=== PATIENT | female | born 1960 | race Hispanic/Latino ===

== ENCOUNTER 2017-05-11 08:30 | Observation (INO) | payer BC ==
[2017-05-11] MEDS ORDERED: Albuterol-Ipratrop 3 mg / 0.5 (3 ml) UD IH STA (09:00)
[2017-05-11] MEDS ORDERED: Albuterol 0.083% Inhal Sol (2.5 mg/3 mL) UD INH STA (09:00)
--- NOTE | 2017-05-11 09:24 | ED PDOC ---
Arrival/HPI - General Chief Complaint: Shortness Of Breath Time Seen by Provider: 05/11/17 08:54 Historian: Patient - History of Present Illness Narrative History of Present Illness (Text): 05/11/17 09:27 A 57 year old male presents to the emergency department complaining of shortness of breath for the past three weeks. Patient reports to visiting multiple doctors with no relief. Patient was told she has some lung infection after visiting [facility] on 04/25/17. After she was discharged, she visited [facility] and was told she had a negative chest xray. Patient sees a growth hacker and is on steroids, with no relief. Denies taking any pulmonary function test. Reports mother has history of lung CA. Reports she used to live with someone who has flu and Pneumonia. Patient denies smoking currently, quit a long time ago. Patient reports chest pain with deep breaths. Notes thrush at throat and appetite changes. Denies any other complaints at this time. Steroids: Prednisone, Levaquin (750 mg once a day) Time/Duration: < month Symptom Onset: Sudden Symptom Course: Unchanged Activities at Onset: Rest Context: Home Past Medical History - Provider Review Nursing Documentation Reviewed: Yes - Infectious Disease Hx of Infectious Diseases: None - Neurological Other/Comment: Fibromyalgia - Psychiatric Hx Anxiety: Yes Hx Substance Use: No - Surgical History Hx Tubal Ligation: Yes Family/Social History - Physician Review Nursing Documentation Reviewed: Yes Family/Social History: No Known Family HX Smoking Status: Never Smoked Hx Alcohol Use: No Hx Substance Use: No Allergies/Home Meds Allergies/Adverse Reactions: Allergies epinephrine Allergy (Verified 05/11/17 08:47) ANAPHYLAXIS Pt states she gets to jumpy with this medication. Home Medications: Home Meds Medication Instructions Recorded Confirmed predniSONE [Prednisone] 20 mg PO DAILY 05/11/17 05/11/17 Review of Systems - Physician Review All systems were reviewed & negative as marked: Yes - Review of Systems ENT: Other (thrush at throat) Respiratory: SOB Cardiovascular: Chest Pain (with deep breaths) Gastrointestinal: Appetite Changes Physical Exam Vital Signs Reviewed: Yes Vital Signs Temp Pulse Resp BP Pulse Ox 05/11/17 08:42 98.7 F 87 18 115/80 97 05/11/17 08:40 20 Temperature: Afebrile Blood Pressure: Normal Pulse: Regular Respiratory Rate: Normal Appearance: Positive for: Well-Appearing, Non-Toxic, Comfortable Pain Distress: None Mental Status: Positive for: Alert and Oriented X 3 - Systems Exam Head: Present: Atraumatic, Normocephalic Pupils: Present: PERRL Extroacular Muscles: Present: EOMI Conjunctiva: Present: Normal Mouth: Present: Moist Mucous Membranes Pharnyx: Present: Other (thrush on tongue and down posterior pharynx) Neck: Present: Normal Range of Motion Respiratory/Chest: Present: Wheezes (expiratory, posteriorly) Cardiovascular: Present: Regular Rate and Rhythm, Normal S1, S2. No: Murmurs Abdomen: Present: Normal Bowel Sounds. No: Tenderness, Distention, Peritoneal Signs Back: Present: Normal Inspection Upper Extremity: Present: Normal Inspection. No: Cyanosis, Edema Lower Extremity: Present: Normal Inspection. No: Edema Neurological: Present: GCS=15, CN II-XII Intact, Speech Normal Skin: Present: Warm, Dry, Normal Color. No: Rashes Psychiatric: Present: Alert, Oriented x 3, Normal Insight, Normal Concentration Medical Decision Making ED Course and Treatment: 05/11/17 09:20 Impression: A 57 year old female with shortness of breath. Plan: -- EKG -- chest xray -- labs -- Albuterol, Diflucan, Duoneb, Solumedrol -- Reassess and disposition Progress Notes: EKG: Ordered, reviewed, and independently interpreted the EKG. Rate : 83 BPM Rhythm : NSR Interpretation : Normal intervals, normal axis 05/11/17 11:12 Chest xray- Creator : Severino Pearce MD IMPRESSION: No active disease. 05/11/17 11:[address] Cherry, who agrees and accepts patient to be admitted. Patient was admitted for acute bronchospasm with bronchitis. - Lab Interpretations Lab Results: 05/11/17 09:10 05/11/17 09:10 Lab Results 05/11/17 09:45: pCO2 42, pO2 178.0 H, HCO3 28.5 H, ABG pH 7.44, ABG Total CO2 29.8 H, ABG O2 Saturation 99.4 H, ABG Base Excess 3.9 H, ABG Potassium 3.0 L, Glucose 178 H, Lactate 1.4, FiO2 60.0, Sodium 137.0, Chloride 104.0, Arterial Blood Potassium 3.0 L 05/11/17 09:10: Sodium 139, Potassium 3.5 L, Chloride 99, Carbon Dioxide 28, Anion Gap 16, BUN 13, Creatinine 0.8, Est GFR ( Amer) > 60, Est GFR (Non- Af Amer) > 60, Random Glucose 188 H, Calcium 10.0, Total Bilirubin 0.7, AST 18, ALT 23, Alkaline Phosphatase 63, Total Protein 6.9, Albumin 4.3, Globulin 2.6, Albumin/Globulin Ratio 1.7 05/11/17 09:10: PT 12.3, INR 1.07, D-Dimer, Quantitative < 200 05/11/17 09:10: WBC 11.2 H, RBC 4.71, Hgb 14.0, Hct 41.8, MCV 88.7, MCH 29.7, MCHC 33.5, RDW 12.4, Plt Count 242, MPV 9.4, Gran % 57.6, Lymph % (Auto) 37.3 H , Noble % (Auto) 4.7, Eos % (Auto) 0.2 L, Baso % (Auto) 0.2, Gran # 6.43, Lymph # (Auto) 4.2 H, Noble # (Auto) 0.5, Eos # (Auto) 0.0, Baso # (Auto) 0.02 I have reviewed the lab results: Yes - EKG Interpretation Interpreted by ED Physician: Yes Type: 12 lead EKG - Medication Orders Current Medication Orders: Discontinued Medications Albuterol Sulfate (Albuterol 0.083% Inhal Shanae (2.5 Mg/3 Ml) Ud) 5 mg INH STAT STA Stop: 05/11/17 09:01 Last Admin: 05/11/17 09:19 Dose: 5 mg Albuterol/Ipratropium (Duoneb 3 Mg/0.5 Mg (3 Ml) Ud) 3 ml IH STAT STA Stop: 05/11/17 09:01 Last Admin: 05/11/17 09:03 Dose: 3 ml Clotrimazole (Mycelex Chet) 10 mg MT ONCE ONE Stop: 05/11/17 10:24 Fluconazole (Diflucan) 150 mg PO ONCE ONE PRN Reason: Protocol Stop: 05/11/17 09:02 Last Admin: 05/11/17 09:20 Dose: 150 mg Methylprednisolone (Solu-Medrol) 125 mg IVP STAT STA Stop: 05/11/17 09:01 Last Admin: 05/11/17 09:18 Dose: 125 mg IVP Administration Document 05/11/17 09:18 CHARLEE (Rec: 05/11/17 09:18 CHARLEE [id number]) Charges for Administration # of IVP Administrations 1 - PA / [employer] / Resident Statement MD/DO has reviewed & agrees with the documentation as recorded. - Scribe Statement The provider has reviewed the documentation as recorded by the Brandi Aldridge Provider Scribe Attestation: All medical record entries made by the Brandi were at my direction and personally dictated by me. I have reviewed the chart and agree that the record accurately reflects my personal performance of the history, physical exam, medical decision making, and the department course for this patient. I have also personally directed, reviewed, and agree with the discharge instructions and disposition. Disposition/Present on Arrival - Present on Arrival Any Indicators Present on Arrival: No History of DVT/PE: No History of Uncontrolled Diabetes: No Urinary Catheter: No History of Decub. Ulcer: No History Surgical Site Infection Following: None - Disposition Have Diagnosis and Disposition been Completed?: Yes Diagnosis: Bronchospasm with bronchitis, acute Disposition Time: 10:33 Patient Plan: Admission Patient Problems: Current Active Problems Problem Status Onset Bronchospasm with bronchitis, acute Acute Condition: GOOD
[2017-05-11 09:42] LABS: BASO # 0.02 K/mm3 (0.0-2.0); BASO % 0.2 % (0.0-3.0); EOS % 0.2 % (1.5-5.0); GRAN # 6.43 (1.4-6.5); GRAN % 57.6 % (50.0-68.0); LYMPH # 4.2 (1.2-3.4); LYMPH % 37.3 % (22.0-35.0); MEAN CELL VOLUME 88.7 fl (80.0-105.0); MEAN CORPUSCULAR HEMOGLOBIN 29.7 pg (25.0-35.0); MEAN CORPUSCULAR HGB CONC 33.5 g/dl (31.0-37.0); MEAN PLATELET VOLUME 9.4 fl (7.0-11.0); MONO # 0.5 (0.1-0.6); MONO % 4.7 % (1.0-6.0); RBC 4.71 10^6/uL (3.5-6.1); RED CELL DISTRIBUTION WIDTH 12.4 % (11.5-14.5); WHITE BLOOD COUNT 11.2 10^3/ul (4.5-11.0)
[2017-05-11 09:50] LABS: ARTERIAL BLOOD GAS HCO3 28.5 mmol/L (21-28); ARTERIAL BLOOD GAS O2 SAT 99.4 % (95-98); ARTERIAL BLOOD GAS PCO2 42 mm/Hg (35-45); ARTERIAL BLOOD GAS PH 7.44 (7.35-7.45); ARTERIAL BLOOD GAS TCO2 29.8 mmol.L (22-28)
[2017-05-11 09:53] LABS: ALB/GLOB RATIO 1.7 (1.1-1.8); ALBUMIN 4.3 g/dL (3.0-4.8); ALT/SGPT 23 U/L (7-56); AST/SGOT 18 U/L (14-36); BLOOD UREA NITROGEN 13 mg/dL (7-21); GFR AFRICAN-AMERICAN > 60; GFR NON-AFRICAN AMERICAN > 60
[2017-05-11 09:55] LABS: INR 1.07 (0.93-1.08); PROTHROMBIN TIME 12.3 SECONDS (9.4-12.5)
[2017-05-11 09:56] LABS: D DIMER < 200 ng/mL (0-243)
--- NOTE | 2017-05-11 11:11 | RAD ---
HISTORY: BRONCHOSPASM COMPARISON: No prior. FINDINGS: LUNGS: No active pulmonary disease. PLEURA: No significant pleural effusion identified, no pneumothorax apparent. CARDIOVASCULAR: Normal. OSSEOUS STRUCTURES: No significant abnormalities. VISUALIZED UPPER ABDOMEN: Normal. OTHER FINDINGS: None. IMPRESSION: No active disease.
[2017-05-11] MEDS: Albuterol-Ipratrop 3 mg / 0.5 (3 ml) UD IH PRN (16:26)
[2017-05-11 18:01] VITALS: BMI 25.9
[2017-05-11] MEDS ORDERED: Pneumococcal 23-Valent Vaccine IM ONE (18:01)
[2017-05-11] MEDS ORDERED: Influenza Vaccine 60 mcg/0.5 mL SYR (4YR UP) IM ONE (18:01)
[2017-05-11] MEDS: Sucralfate 1 gm/10 ml Oral Susp UD PO SCH ×2 (18:38→22:30)
[2017-05-11] MEDS: Nystatin 100,000 Units/ml Oral Susp 5 ml UD PO SCH ×2 (18:38→22:30)
[2017-05-11] MEDS: Pantoprazole 40 mg EC Tab PO SCH (18:38)
--- NOTE | 2017-05-11 21:50 | CARD ---
APPROVED REPORT EKG Measurement Heart [id number] <Conclusion> Normal sinus rhythm Normal ECG
--- NOTE | 2017-05-12 02:42 | PN ---
DATE: 05/11/2017 PULMONARY PROGRESS NOTE REFERRING PHYSICIAN: Dr. Cherry. REASON FOR CONSULT: Cough and shortness of breath. HISTORY OF PRESENT ILLNESS: This is a 57-year-old female with diagnosis of fibromyalgia, recently seen at multiple occasions including [facility] ER, seen by PMD, also seen by [facility] in [facility], also seen by Dr. Carlson who is a energy audit advisor. She has been on antibiotics, been on steroids, keep complaining of a burning throat, difficulty breathing, muscular pain, shortness of breath. During my interview, seems very comfortable. There was no cough, did not notice any shortness of breath, there is no hemoptysis, she is denying any significant cough, denying any body aches or pain, denying any high fever. According to patient, she noted thrush in the throat. SUBJECTIVE: According to her, she was given Diflucan and she felt better. Denying any loud snoring at nighttime. According to , she wheeze while sleeping at nighttime. PAST MEDICAL HISTORY: She carry diagnosis of fibromyalgia. There is no cardiopulmonary disease in the past. ALLERGIES: SHE HAS ALLERGY TO EPINEPHRINE, GET ANAPHYLAXIS. SOCIAL HISTORY: Never smoked. Denying any alcohol use. FAMILY HISTORY: No significant cardiopulmonary disease reported. MEDICATIONS: She just finished off Levaquin and methylprednisolone. She gets nebulizer treatment, Mycelex Chet and Solu-Medrol 125 IV was given. REVIEW OF SYSTEMS: No headache, no rhinitis. Has shortness of breath, some cough, not much sputum production, has muscular type chest pain, epigastric discomfort. In the past, she used Protonix and still use Protonix on a daily basis. No leg pain, no leg swelling, no dysuria. PHYSICAL EXAMINATION: GENERAL: Lying in the bed, no acute distress. VITAL SIGNS: Temp is 98, heart rate is 90, respiratory rate is 20, blood pressure 104/62, pulse ox 97% on room air. HEENT: Moist mucous membrane. No ulcer or thrush. NECK: Supple. No JVD. LUNGS: Has a fair airflow with rhonchi. HEART: S1, S2. ABDOMEN: Soft, nontender. No organomegaly. She does have some epigastric tenderness on palpation. EXTREMITIES: There is no edema. NEUROLOGICAL: Awake and alert. Follow simple commands. LABORATORY DATA: Shows hemoglobin 14.0, hematocrit 41.8, WBC 11.2, platelet is 242. INR 1.07, PT is 12.3, D-dimer is less than 200. Blood gases show pH 7.44, pCO2 of 42, O2 is 178, this is on 60% oxygen. Sodium 139, potassium 3.5, chloride 99, bicarbonate 28, BUN 13, creatinine 0.8, glucose 188, calcium 10.0, AST , ALT 23, alk phos is 63, albumin is 4.3. Influenza A and B is negative. She had a chest x-ray done today, which shows no infiltrate or effusion. There is no other visit reported in her record here. IMPRESSION AND PLAN: Reoccurring shortness of breath. She claims her CT of the chest been negative for pulmonary embolism other than a lung nodule. She has been treated with the steroids and antibiotics as an outpatient, which failed the treatment. If her story is right and what she telling me that CT negative, failed prednisone and Levaquin as outpatient. She probably has a gastroesophageal reflux disease causing her esophagitis, pharyngeal pain and probably triggering bronchospasm. So I will place her on Protonix 40 mg twice a day, also give a Carafate slurry a.c. and at bedtime. We will give her Lyrica 25 mg twice a day. Keep head elevated at 45 degree, may give a nebulizer treatment only p.r.n. basis. She will start her on Reglan 5 mg q.i.d. just for 24-hour and see how she does. If symptom does not improve, we will lead to do CAT scan of the chest and may also lead to look into the echocardiography. Outpatient, she should get pulmonary function test. Spoke to patient at the bedside. All the questions answered. Thank you and we will follow with you. Jomar Zamora MD
[2017-05-12] MEDS: Pantoprazole 40 mg EC Tab PO SCH ×3 (06:17→17:49)
[2017-05-12] MEDS: Albuterol-Ipratrop 3 mg / 0.5 (3 ml) UD IH PRN ×3 (06:36→20:52)
[2017-05-12 08:15] VITALS: O2SAT 97
[2017-05-12 09:03] LABS: BASO # 0.01 K/mm3 (0.0-2.0); BASO % 0.1 % (0.0-3.0); EOS % 0.1 % (1.5-5.0); GRAN # 11.5 (1.4-6.5); GRAN % 71.2 % (50.0-68.0); HEMOGLOBIN 13.5 g/dL (12.0-16.0); LYMPH # 3.7 (1.2-3.4); LYMPH % 22.8 % (22.0-35.0); MEAN CELL VOLUME 89.3 fl (80.0-105.0); MEAN CORPUSCULAR HEMOGLOBIN 29.5 pg (25.0-35.0); MEAN CORPUSCULAR HGB CONC 33.1 g/dl (31.0-37.0); MEAN PLATELET VOLUME 9.3 fl (7.0-11.0); MONO # 0.9 (0.1-0.6); MONO % 5.8 % (1.0-6.0); RBC 4.57 10^6/uL (3.5-6.1); RED CELL DISTRIBUTION WIDTH 12.6 % (11.5-14.5); WHITE BLOOD COUNT 16.1 10^3/ul (4.5-11.0)
[2017-05-12 09:18] LABS: ALB/GLOB RATIO 1.6 (1.1-1.8); ALBUMIN 4.1 g/dL (3.0-4.8); ALT/SGPT 23 U/L (7-56); AST/SGOT 17 U/L (14-36); BLOOD UREA NITROGEN 16 mg/dL (7-21); GFR AFRICAN-AMERICAN > 60; GFR NON-AFRICAN AMERICAN > 60; HDL CHOLESTEROL 55 mg/dL (29-60)
[2017-05-12 09:24] LABS: LDL CHOLESTEROL 119 mg/dL (0-129)
[2017-05-12] MEDS: Nystatin 100,000 Units/ml Oral Susp 5 ml UD PO SCH ×4 (10:03→21:35)
[2017-05-12 10:17] LABS: IRON 125 ug/dL (45-180)
[2017-05-12 10:27] LABS: % IRON SATURATION 45 % (20-55); TOTAL IRON BINDING CAPACITY 279 ug/dL (265-497)
[2017-05-12] MEDS: Sucralfate 1 gm/10 ml Oral Susp UD PO SCH ×3 (12:09→21:35)
--- NOTE | 2017-05-12 14:53 | CT ---
PROCEDURE: CT Abdomen with and without intravenous contrast HISTORY: w/ abdomen and pelvis: abdomianl pain COMPARISON: None. TECHNIQUE: Axial images of the abdomen from lung bases to iliac crest with and without intravenous contrast enhancement. Coronal and sagittal reformats generated. Oral contrast also administered. Intravenous contrast Dose: 150 cc of Omni 350 Radiation dose: Total exam DLP = 759 mGy-cm. This CT exam was performed using one or more of the following dose reduction techniques: Automated exposure control, adjustment of the mA and/or kV according to patient size, and/or use of iterative reconstruction technique. FINDINGS: LOWER THORAX: Unremarkable. LIVER: Unremarkable. No gross lesion or ductal dilatation. GALLBLADDER AND BILE DUCTS: The gallbladder is unremarkable. The common duct measures 10 mm in diameter. There is no obstructing stone or pancreatic mass. PANCREAS: Unremarkable. No gross lesion or ductal dilatation. SPLEEN: Unremarkable. ADRENALS: Unremarkable. No mass. KIDNEYS AND URETERS: Unremarkable. No hydronephrosis. No solid mass. VASCULATURE: Unremarkable. No aortic aneurysm. BOWEL: Unremarkable. No obstruction. No gross mural thickening. PERITONEUM: Unremarkable. No free fluid. No free air. LYMPH NODES: Unremarkable. No enlarged lymph nodes. BONES: No acute fracture. OTHER FINDINGS: None. IMPRESSION: Dilated common bile duct with no obvious stone or mass.
--- NOTE | 2017-05-12 16:26 | CP.PCM.CON ---
<Una Jimenez - Last Filed: 05/12/17 18:30> History of Present Illness - History of Present Illness History of Present Illness: S&E at bedside, chart reviewed earlier today. Request for consult is for dyspepesia. HPI: 57 y.o female w/ PMH fibromyalgia been to multiple doctors and ER visits at [facility] [place], and [facility] in [place] for complaints of SOB and cough. Endorses that she was given multiple diagnosis, One she mentioned was she may have "Anxiety". Also has seen credit historian Dr. Carlson placed on antibiotics and steroids. Patient c/o epigastric burning especially since starting steroids, also c/o pain radiated to her back, She reports over 10 lbs weight loss over 1 week , poor appetite, when she eats/drinks get burning sensation, she has oral thrush was given Difulcan and felt some relief. She had EGD/colon with Dr. Taylor August 2016, found colon polyps and hiatal hernia. CXR no acute findings. PMH: Fibromyalgia, colon polyps, haital hernia, denies cardiac issues PSH: none Family HX: monther Lung cancer MEDS: reviewed as per MAY. Allergies: Epinephrine Social HX: denies tobacco , etoh, drugs ROS: systems reviewed w/ positive findings, see HPI Past Patient History - Infectious Disease Hx of Infectious Diseases: None - Past Social History Smoking Status: Never Smoked - CARDIAC Hx Cardiac Disorders: No - PULMONARY Hx Respiratory Disorders: Yes (THRUSH-DUE TO STEROID USE) Hx Emphysema: Yes Other/Comment: LUNG NODULE - NEUROLOGICAL Hx Neurological Disorder: Yes Other/Comment: Fibromyalgia - HEENT Hx HEENT Problems: No - RENAL Hx Chronic Kidney Disease: No - ENDOCRINE/METABOLIC Hx Endocrine Disorders: No - HEMATOLOGICAL/ONCOLOGICAL Hx Blood Disorders: No - INTEGUMENTARY Hx Dermatological Problems: No - MUSCULOSKELETAL/RHEUMATOLOGICAL Hx Musculoskeletal Disorders: No Hx Falls: No - GASTROINTESTINAL Hx Gastrointestinal Disorders: Yes (HIATAL HERNIA) Hx Gastroesophageal Reflux: Yes - GENITOURINARY/GYNECOLOGICAL Hx Genitourinary Disorders: Yes (TUBAL LIGATION) - PSYCHIATRIC Hx Anxiety: Yes Hx Substance Use: No - SURGICAL HISTORY Hx Surgeries: Yes (TUBAL LIGATION) Meds Allergies/Adverse Reactions: Allergies Allergy/AdvReac Type Severity Reaction Status Date / Time epinephrine Allergy ANAPHYLAXIS Verified 05/11/17 17:37 - Medications Medications: Current Medications Acetylcysteine (Acetylcysteine 20%) 4 ml IH [id number] [facility] Albuterol/Ipratropium (Duoneb 3 Mg/0.5 Mg (3 Ml) Ud) 3 ml IH [id number] PRN PRN Reason: Shortness of Breath Last Admin: 05/12/17 12:21 Dose: 3 ml Metoclopramide HCl (Reglan) 5 mg PO 0600,1130,1630,2200 [facility] Stop: 05/12/17 23:59 Last Admin: 05/12/17 12:09 Dose: 5 mg Nystatin (Nystatin Oral Susp) 5 ml PO QID [facility] Last Admin: 05/12/17 14:53 Dose: 5 ml Pantoprazole Sodium (Protonix Ec Tab) 40 mg PO 0600,1600 [facility] Last Admin: 05/12/17 06:17 Dose: 40 mg Pregabalin (Lyrica) 25 mg PO BID [facility] Last Admin: 05/12/17 10:18 Dose: Not Given Sucralfate (Carafate Oral Susp) 1 gm PO 0630,1130,1630,2200 [facility] Last Admin: 05/12/17 12:09 Dose: 1 gm Physical Exam - Constitutional Appears: No Acute Distress - Head Exam Head Exam: NORMOCEPHALIC - Eye Exam Eye Exam: Normal appearance. absent: Scleral icterus - ENT Exam ENT Exam: Mucous Membranes Moist - Neck Exam Neck exam: Positive for: Normal Inspection - Respiratory Exam Respiratory Exam: Rhonchi, NORMAL BREATHING PATTERN. absent: Wheezes, Respiratory Distress - Cardiovascular Exam Cardiovascular Exam: +S1, +S2 - GI/Abdominal Exam GI & Abdominal Exam: Normal Bowel Sounds, Soft. absent: Guarding, Organomegaly , Rebound, Tenderness - Extremities Exam Extremities exam: Positive for: pedal pulses present. Negative for: calf tenderness, pedal edema - Neurological Exam Neurological exam: Alert, Oriented x3 - Skin Skin Exam: Dry, Warm Results - Vital Signs Recent Vital Signs: Last Vital Signs Temp 97.9 F 05/12/17 08:14 Pulse 54 L 05/12/17 08:14 Resp 20 05/12/17 08:14 BP 105/69 05/12/17 08:14 Pulse Ox 97 05/12/17 08:14 - Labs Result Diagrams: 05/12/17 08:45 05/12/17 08:45 Labs: Laboratory Results - last 24 hr 05/12/17 05/12/17 05/12/17 08:30 08:45 08:45 WBC 16.1 H D RBC 4.57 Hgb 13.5 Hct 40.8 MCV 89.3 MCH 29.5 MCHC 33.1 RDW 12.6 Plt Count 242 MPV 9.3 Gran % 71.2 H Lymph % (Auto) 22.8 Davie % (Auto) 5.8 Eos % (Auto) 0.1 L Baso % (Auto) 0.1 Gran # 11.50 H Lymph # (Auto) 3.7 H Davie # (Auto) 0.9 H Eos # (Auto) 0.0 Baso # (Auto) 0.01 Sodium 139 Potassium 3.9 Chloride 98 Carbon Dioxide 31 Anion Gap 14 BUN 16 Creatinine 0.8 Est GFR ( Amer) > 60 Est GFR (Non-Af Amer) > 60 Random Glucose 114 H Calcium 10.0 Iron 125 TIBC 279 % Saturation 45 Total Bilirubin 0.7 AST 17 ALT 23 Alkaline Phosphatase 63 Total Protein 6.8 Albumin 4.1 Globulin 2.7 Albumin/Globulin Ratio 1.6 Triglycerides 123 Cholesterol 208 H LDL Cholesterol Direct 119 HDL Cholesterol 55 Assessment & Plan - Assessment and Plan (Free Text) Assessment: ASSESSMENT: Leukocystosis SOB/Cough/ Upper Respiratory Infection Epigastric Pain, differential GERD,on steroids r/o pancreatic cause GERD Fibromyalgia PLAN: ct scan abdomen and pelvis w/ pancreatic protocol continue Protonix daily diet as tolerated on Carafate on steroids DVT prophylaxsis on Nystatin FU TSH level Thank you for this consult and for allowing us to participate in your patient care, further recommendation based upon clinical course. Seen and discussed w/ Dr. Aly. <Blanquita Aly V - Last Filed: 05/12/17 23:36> Meds - Medications Medications: Current Medications Acetylcysteine (Acetylcysteine 20%) 4 ml IH [id number] [facility] Last Admin: 05/12/17 20:52 Dose: 4 ml Albuterol/Ipratropium (Duoneb 3 Mg/0.5 Mg (3 Ml) Ud) 3 ml IH [id number] [facility] Atorvastatin Calcium (Lipitor) 10 mg PO DIN [facility] Metoclopramide HCl (Reglan) 5 mg PO 0600,1130,1630,2200 [facility] Stop: 05/12/17 23:59 Last Admin: 05/12/17 21:35 Dose: 5 mg Montelukast Sodium (Singulair) 10 mg PO HS [facility] Last Admin: 05/12/17 22:40 Dose: 10 mg Nystatin (Nystatin Oral Susp) 5 ml PO QID [facility] Last Admin: 05/12/17 21:35 Dose: 5 ml Pantoprazole Sodium (Protonix Ec Tab) 40 mg PO 0600,1600 [facility] Last Admin: 05/12/17 17:49 Dose: Not Given Prednisone (Prednisone Tab) 20 mg PO DAILY [facility] Pregabalin (Lyrica) 25 mg PO BID [facility] Last Admin: 05/12/17 17:49 Dose: Not Given Sucralfate (Carafate Oral Susp) 1 gm PO 0630,1130,1630,2200 [facility] Last Admin: 05/12/17 21:35 Dose: 1 gm Results - Vital Signs Recent Vital Signs: Last Vital Signs Temp 99.3 F 05/12/17 16:00 Pulse 76 05/12/17 16:00 Resp 20 05/12/17 16:00 BP 117/66 05/12/17 16:00 Pulse Ox 97 05/12/17 16:00 - Labs Result Diagrams: 05/12/17 08:45 05/12/17 08:45 Labs: Laboratory Results - last 24 hr 05/12/17 05/12/17 05/12/17 08:30 08:30 08:45 WBC 16.1 H D RBC 4.57 Hgb 13.5 Hct 40.8 MCV 89.3 MCH 29.5 MCHC 33.1 RDW 12.6 Plt Count 242 MPV 9.3 Gran % 71.2 H Lymph % (Auto) 22.8 Davie % (Auto) 5.8 Eos % (Auto) 0.1 L Baso % (Auto) 0.1 Gran # 11.50 H Lymph # (Auto) 3.7 H Davie # (Auto) 0.9 H Eos # (Auto) 0.0 Baso # (Auto) 0.01 Sodium Potassium Chloride Carbon Dioxide Anion Gap BUN Creatinine Est GFR ( Amer) Est GFR (Non-Af Amer) Random Glucose Hemoglobin A1c 6.2 Calcium Iron 125 TIBC 279 % Saturation 45 Total Bilirubin AST ALT Alkaline Phosphatase Total Protein Albumin Globulin Albumin/Globulin Ratio Triglycerides Cholesterol LDL Cholesterol Direct HDL Cholesterol Vitamin B12 Folate 02/22/18 08:45 WBC RBC Hgb Hct MCV MCH MCHC RDW Plt Count MPV Gran % Lymph % (Auto) Davie % (Auto) Eos % (Auto) Baso % (Auto) Gran # Lymph # (Auto) Davie # (Auto) Eos # (Auto) Baso # (Auto) Sodium 139 Potassium 3.9 Chloride 98 Carbon Dioxide 31 Anion Gap 14 BUN 16 Creatinine 0.8 Est GFR ( Amer) > 60 Est GFR (Non-Af Amer) > 60 Random Glucose 114 H Hemoglobin A1c Calcium 10.0 Iron TIBC % Saturation Total Bilirubin 0.7 AST 17 ALT 23 Alkaline Phosphatase 63 Total Protein 6.8 Albumin 4.1 Globulin 2.7 Albumin/Globulin Ratio 1.6 Triglycerides 123 Cholesterol 208 H LDL Cholesterol Direct 119 HDL Cholesterol 55 Vitamin B12 610 Folate 10.6 Attending/Attestation - Attestation Notes (Text): This is an addendum to GI consult report dictated by Una Jimenez APN.The patient was seen and examined earlier. Medical records, lab studies, imagings were reviewed. Last 24 hours events reviewed. Agreed with the above treatment plan as outlined in Una Jimenez APN's notes the with the addition of the following will 05/12/17 23:35
[2017-05-12 17:47] LABS: FOLATE 10.6 ng/mL
--- NOTE | 2017-05-12 20:00 | HP ---
DATE OF EXAM: 05/11/2017 The patient was seen and examined on 05/11/2017 in the emergency room. was sitting on the bedside also. CHIEF COMPLAINT: Shortness of breath, coughing, chest pain with coughing. HISTORY OF PRESENT ILLNESS: Ms. Nora Campbell is a 57-year-old female with past medical history of COPD, came to the Emergency Department complaining of shortness of breath for past three weeks. Patient reports visiting multiple doctors, urgent care centers, ERs with no relief. Patient was told she had some lung infection after visiting [facility] on 04/25/2017. After that, she visited some [facility] and was told her chest x-ray was negative. Then, patient went to see casualty underwriter who gave her steroids and antibiotics, but told her she needs pulmonary function test. Patient says that her mother has a history of lung cancer and patient visited a friend in [facility] who has flu and pneumonia. Patient denies smoking currently, history of smoking long time ago and quit long time ago and according to her, her cough is like constant and with deep breathing, she is getting chest pain. Mouth is white. Appetite is not great. Tongue and palate has white coating. No fever, no chills. No hematuria, no hematochezia. PAST MEDICAL HISTORY: Fibromyalgia, anxiety, tubal ligation. FAMILY HISTORY: Mother has lung cancer. Father, noncontributory. HABITS: Not smoking now. No drug. No ethanol. ALLERGIES: PATIENT IS ALLERGIC WITH EPINEPHRINE. HOME MEDICATIONS: Prednisone, already finished course of antibiotics. REVIEW OF SYSTEMS: Patient was seen and examined on the bedside in the Emergency Room on 05/11/2017. was sitting on the bedside also. Has a white coating on the tongue and throat, shortness of breath, chest pain with deep breathing. Appetite is not great. No fever, no chills. No headache. No dizziness. No swelling of the legs. No hematuria, no hematochezia. No rash on the skin. No urinary complaints. Patient is oriented x3. PHYSICAL EXAMINATION VITAL SIGNS: Temperature 98.7, pulse 87, respiratory rate 18, blood pressure 115/80, pulse oximetry 97%. HEENT: Head: Normocephalic, atraumatic. Eyes: PERRLA. Extraocular muscles intact. Conjunctivae clear. Nose patent. Mucous membranes are moist. NECK: Supple. No carotid bruits, JVD or thyromegaly. CHEST: Bilaterally symmetrical. HEART: S1, S2 positive. LUNGS: Clear to auscultation. ABDOMEN: Soft. Bowel sounds present. No organomegaly. EXTREMITIES: No edema, no cyanosis. NEUROLOGICAL: Patient is awake and alert. Moving all 4 extremities. No focal deficit. LABORATORY DATA: White blood cells 11.2, hemoglobin 14.0, hematocrit 41.8, platelets 242,000. Sodium 138, potassium 3.5, BUN 13, creatinine 0.8. Glucose 188. ASSESSMENT AND PLAN: Ms. Nora Campbell is a 57-year-old lady with leukocytosis; hypokalemia; hyperglycemia; patient has a history of fibromyalgia; has recurrent shortness of breath; history of lung nodule, failed outpatient treatment with antibiotics and with steroids, visited multiple satellite centers, casualty underwriter, primary care physician, and ER; gastroesophageal reflux disease; rule out esophagitis, rule out peptic ulcer disease; bronchospasm; oral thrush. Got Diflucan in the Emergency Room. Dr. Zamora put her on Protonix, Carafate. Lyrica is given. Rule out bronchitis. Patient is started on Reglan. Dr. Zamora is planning to do an echocardiography and CAT scan of the chest if the patient does not improve. Length of time discussion, done with the patient and patient's on the bedside. All questions answered. discussion done with the emergency room physician also. bronchospasm with bronchitis, acute. Chest x-ray and echocardiography done, reviewed by me. Chest x-ray is negative. she will need GI evaluation. We will follow up. Betsy Cherry MD MARY
[2017-05-12] MEDS: Acetylcysteine 20% Inhal Soln (4ml) IH SCH (20:52)
[2017-05-13] MEDS: Acetylcysteine 20% Inhal Soln (4ml) IH SCH ×3 (01:51→13:24)
[2017-05-13] MEDS: Albuterol-Ipratrop 3 mg / 0.5 (3 ml) UD IH SCH ×3 (01:52→13:24)
--- NOTE | 2017-05-13 02:28 | PN ---
DATE: PULMONARY PROGRESS NOTE: REFERRING PHYSICIAN: Dr. Cherry. SUBJECTIVE: Patient is sitting at the side of the bed, having dinner, at bedside. Overall, feels better. Throat pain is better. Esophageal pain seems better. Has some cough and wheezing today. Also some epigastric pain. No abdominal pain. No dysuria. No leg pain. No leg swelling. OBJECTIVE: GENERAL: In no acute distress. VITAL SIGNS: Temperature is 99, heart rate is 76, respiratory rate is 20, blood pressure 117/66, pulse ox 97% on room air. HEENT: Moist mucous membrane. Crowded airway. NECK: Supple. No JVD. LUNGS: Does have a prolonged expiratory phase. There is some wheezing. HEART: S1 and S2. ABDOMEN: Soft. Mild epigastric tenderness. EXTREMITIES: No edema. NEUROLOGIC: Awake and alert. Follows simple command. MEDICATIONS: She is on Mucomyst 20% inhaled q.6 hour, Carafate 1 g q.i.d., DuoNeb q.6 hours p.r.n., also Lyrica 25 mg twice a day, nystatin 5 mL q.i.d., Protonix 40 mg, Reglan 5 mg q.6 hours. LABORATORY DATA: Shows hemoglobin 13.5, hematocrit 40.8, WBC 16,000, platelet is 242. INR 1.07. D-dimer less than 200. Sodium 139, potassium 3.9, chloride 98, bicarbonate is 31, BUN is 16, creatinine , glucose 114, calcium is 10. AST 17, ALT 23, alk phos is 63, albumin is 4.1. Triglycerides , cholesterol is 208. Microbiology: Blood cultures have been negative. Pancreatic CT shows some dilated ducts, but no stone. IMPRESSION AND PLAN: Probably has chronic obstructive lung disease, afterload using prednisone we can hear some wheezing and prolonged expiratory phase. Some non-specific finding on the CT of the abdomen, which is dilated ducts. Pulmonary point of view, I agree with the Mucomyst. Change nebulizer to q.6 hour round the clock. Add Singulair 10 mg at bedtime. GI followup. Continue present medications for now. Pulmonary function test upon discharge as an outpatient. Thank you and we will follow with you. Jomra Zamora MD
--- NOTE | 2017-05-13 02:44 | PN ---
DATE: SUBJECTIVE: The patient is a 57-year-old female. The patient is seen and examined on the bedside, looking comfortable. Still complaining about coughing, gassy stomach, epigastric pain going to the back. No fever. No chills. No headache. No dizziness, nausea, vomiting, or diarrhea. PHYSICAL EXAMINATION: VITAL SIGNS: Temperature 99.3, pulse 76, blood pressure 117/56, respiratory rate 20. HEENT: Head: Normocephalic, atraumatic. Eyes: PERRLA. Extraocular muscles intact. Conjunctivae clear. Nose patent. Mucous membranes are moist. NECK: Supple. No carotid bruits. There is no JVD or thyromegaly. CHEST: Bilaterally symmetrical. HEART: S1, S2 positive. LUNGS: Clear to auscultation. ABDOMEN: Soft. Bowel sounds positive. No organomegaly. EXTREMITIES: No edema. No cyanosis. NEUROLOGIC: The patient is awake and alert. Moving all four extremities. No focal deficit. MEDICATIONS: Acetylcysteine, Carafate, DuoNeb, Lyrica, nystatin oral suspension, , Reglan. LABORATORY DATA: Sodium 139, potassium 3.9. BUN 16, creatinine 0.8. Glucose 114. Cholesterol 208. White blood cell is 16.1, hemoglobin 13.5, hematocrit 40.5, platelets 242. ASSESSMENT AND PLAN: Ms. Nora Campbell is a 57-year-old lady with leukocytosis, hyperglycemia, hypercholesterolemia, seen by clipper and turner, Una Jimenez. The patient has a history of fibromyalgia, colon polyp, hiatal hernia, mother had a history of lung cancer, came with gastroesophageal reflux disease, shortness of breath, coughing, upper respiratory tract infection, epigastric pain and differential will be gastroesophageal reflux disease and dyspepsia, rule out pancreatic cause. CAT scan of abdomen and pelvis ordered with pancreatic protocol by Una Jimenez. Continue Protonix; diet as tolerated; on Carafate, steroid, nystatin; gastrointestinal and deep venous thrombosis prophylaxis. Reviewed CAT scan of the abdomen, showed dilated common bile duct with no obvious stones or masses. Pulmonary consult called, waiting for the input. Gastroesophageal reflux disease, dyspepsia, rule out esophagitis, bronchospasm. Getting Protonix and Lyrica. Repeat labs. We will follow up. Betsy Cherry MD [facility] # [id number]
[2017-05-13] MEDS: Pantoprazole 40 mg EC Tab PO SCH ×2 (05:47→05:54)
[2017-05-13] MEDS: Sucralfate 1 gm/10 ml Oral Susp UD PO SCH ×2 (05:47→12:10)
[2017-05-13 07:08] LABS: HEMOGLOBIN 13.6 g/dL (12.0-16.0); MEAN CELL VOLUME 90.4 fl (80.0-105.0); MEAN CORPUSCULAR HEMOGLOBIN 29.7 pg (25.0-35.0); MEAN CORPUSCULAR HGB CONC 32.9 g/dl (31.0-37.0); MEAN PLATELET VOLUME 9.2 fl (7.0-11.0); RBC 4.58 10^6/uL (3.5-6.1); RED CELL DISTRIBUTION WIDTH 12.9 % (11.5-14.5); WHITE BLOOD COUNT 15.2 10^3/ul (4.5-11.0)
[2017-05-13 07:17] LABS: BLOOD UREA NITROGEN 17 mg/dL (7-21); CALCIUM 10.2 mg/dL (8.4-10.5); GFR AFRICAN-AMERICAN > 60; GFR NON-AFRICAN AMERICAN > 60
[2017-05-13] MEDS: Nystatin 100,000 Units/ml Oral Susp 5 ml UD PO SCH ×2 (09:51→15:05)
[2017-05-13 15:17] VITALS: BP 93/61; PULSE 68; RESP 18; TEMP 98.2
--- NOTE | 2017-05-13 16:14 | CP.PCM.DIS ---
<Lorna Tamez - Last Filed: 05/13/17 16:11> Provider - Provider Date of Admission: 05/11/17 10:23 Attending physician: Betsy Cherry MD Primary care physician: ELIN CooneyP- Consults: Julio - Dr. Sera ANGULO - Dr. Aly Time Spent in preparation of Discharge (in minutes): 45 Hospital Course - Lab Results Lab Results: Most Recent Lab Values WBC 15.2 10^3/ul (4.5-11.0) H 05/13/17 06:30 RBC 4.58 10^6/uL (3.5-6.1) 05/13/17 06:30 Hgb 13.6 g/dL (12.0-16.0) 05/13/17 06:30 Hct 41.4 % (36.0-48.0) 05/13/17 06:30 MCV 90.4 fl (80.0-105.0) 05/13/17 06:30 MCH 29.7 pg (25.0-35.0) 05/13/17 06:30 MCHC 32.9 g/dl (31.0-37.0) 05/13/17 06:30 RDW 12.9 % (11.5-14.5) 05/13/17 06:30 Plt Count 261 10^3/uL (120.0-450.0) 05/13/17 06:30 MPV 9.2 fl (7.0-11.0) 05/13/17 06:30 Gran % 71.2 % (50.0-68.0) H 05/12/17 08:45 Lymph % (Auto) 22.8 % (22.0-35.0) 05/12/17 08:45 Cooke % (Auto) 5.8 % (1.0-6.0) 05/12/17 08:45 Eos % (Auto) 0.1 % (1.5-5.0) L 05/12/17 08:45 Baso % (Auto) 0.1 % (0.0-3.0) 05/12/17 08:45 Gran # 11.50 (1.4-6.5) H 05/12/17 08:45 Lymph # (Auto) 3.7 (1.2-3.4) H 05/12/17 08:45 Cooke # (Auto) 0.9 (0.1-0.6) H 05/12/17 08:45 Eos # (Auto) 0.0 (0.0-0.7) 05/12/17 08:45 Baso # (Auto) 0.01 K/mm3 (0.0-2.0) 05/12/17 08:45 PT 12.3 SECONDS (9.4-12.5) 05/11/17 09:10 INR 1.07 (0.93-1.08) 05/11/17 09:10 D-Dimer, Quantitative < 200 ng/mL (0-243) 05/11/17 09:10 pCO2 42 mm/Hg (35-45) 05/11/17 09:45 pO2 178.0 mm/Hg (80-100) H 05/11/17 09:45 HCO3 28.5 mmol/L (21-28) H 05/11/17 09:45 ABG pH 7.44 (7.35-7.45) 05/11/17 09:45 ABG Total CO2 29.8 mmol.L (22-28) H 05/11/17 09:45 ABG O2 Saturation 99.4 % (95-98) H 05/11/17 09:45 ABG Base Excess 3.9 mmol/L (-2.0-3.0) H 05/11/17 09:45 ABG Potassium 3.0 mmol/L (3.6-5.2) L 05/11/17 09:45 Sodium 137.0 mmol/L (132-148) 05/11/17 09:45 Chloride 104.0 mmol/L (98-107) 05/11/17 09:45 Glucose 178 mg/dl (65-105) H 05/11/17 09:45 Lactate 1.4 mmol/L (0.7-2.1) 05/11/17 09:45 FiO2 60.0 % 05/11/17 09:45 Sodium 138 mmol/L (132-148) 05/13/17 06:30 Potassium 4.4 mmol/L (3.6-5.0) 05/13/17 06:30 Chloride 97 mmol/L (98-107) L 05/13/17 06:30 Carbon Dioxide 33 mmol/L (21-33) 05/13/17 06:30 Anion Gap 13 (10-20) 05/13/17 06:30 BUN 17 mg/dL (7-21) 05/13/17 06:30 Creatinine 0.8 mg/dl (0.7-1.2) 05/13/17 06:30 Est GFR ( Amer) > 60 05/13/17 06:30 Est GFR (Non-Af Amer) > 60 05/13/17 06:30 Random Glucose 129 mg/dL (70-110) H 05/13/17 06:30 Hemoglobin A1c 6.2 % (4.2-6.5) 05/12/17 08:30 Calcium 10.2 mg/dL (8.4-10.5) 05/13/17 06:30 Iron 125 ug/dL (45-180) 05/12/17 08:30 TIBC 279 ug/dL (265-497) 05/12/17 08:30 % Saturation 45 % (20-55) 05/12/17 08:30 Total Bilirubin 0.7 mg/dL (0.2-1.3) 05/12/17 08:45 AST 17 U/L (14-36) 05/12/17 08:45 ALT 23 U/L (7-56) 05/12/17 08:45 Alkaline Phosphatase 63 U/L (38-126) 05/12/17 08:45 Total Protein 6.8 g/dL (5.8-8.3) 05/12/17 08:45 Albumin 4.1 g/dL (3.0-4.8) 05/12/17 08:45 Globulin 2.7 gm/dL 05/12/17 08:45 Albumin/Globulin Ratio 1.6 (1.1-1.8) 05/12/17 08:45 Triglycerides 123 mg/dL (35-160) 05/12/17 08:45 Cholesterol 208 mg/dL (130-200) H 05/12/17 08:45 LDL Cholesterol Direct 119 mg/dL (0-129) 05/12/17 08:45 HDL Cholesterol 55 mg/dL (29-60) 05/12/17 08:45 Vitamin B12 610 pg/mL (239-931) 05/12/17 08:45 Folate 10.6 ng/mL 05/12/17 08:45 TSH 3rd Generation 5.01 mIU/mL (0.46-4.68) H 05/13/17 06:30 Arterial Blood Potassium 3.0 mmol/L (3.6-5.2) L 05/11/17 09:45 Influenza Typ A,B (EIA) Negative for flu a/b (NEGATIVE) 05/11/17 13:30 - Hospital Course Hospital Course: 57 yr female w/ history of fibromylagia, colon polyps, & hiatal hernia. Pt came [place] [facility] [place] shortness of breath and cough. She was previously evaluated by pulmonogist Dr. Carlson who placed her on antibiotics and steroids. She reports that this caused her dyspepsia and caused her to lose weight. CT scan of abdomen showed dilated common bile duct and pancreatic protocol done by GI. Plans made for outpatient MRCP of abdomen. In addition, she was treated for oral thrush. Acute bronchitis treated. Pt is safe for discharge home with follow up in our office. - Date & Time of H&P Date of H&P: 05/13/17 Time of H&P: 09:50 Discharge Exam - Head Exam Head Exam: NORMOCEPHALIC - Eye Exam Eye Exam: EOMI, Normal appearance, PERRL Pupil Exam: NORMAL ACCOMODATION, PERRL - ENT Exam ENT Exam: Mucous Membranes Moist - Neck Exam Neck exam: Full Rom - Respiratory Exam Respiratory Exam: Clear to PA & Lateral, Wheezes, NORMAL BREATHING PATTERN - Cardiovascular Exam Cardiovascular Exam: +S1, +S2 - GI/Abdominal Exam GI & Abdominal Exam: Normal Bowel Sounds - Rectal Exam Rectal Exam: NORMAL INSPECTION - Neurological Exam Neurological exam: Alert, CN II-XII Intact, Normal Gait, Oriented x3, Reflexes Normal - Psychiatric Exam Psychiatric exam: Normal Affect, Normal Mood - Skin Skin Exam: Dry, Intact, Normal Color, Warm Discharge Plan - Discharge Medications Prescriptions: Fluconazole [Diflucan] 200 mg PO DAILY 3 Days #3 tab - Follow Up Plan Condition: GOOD Disposition: HOME/ ROUTINE Instructions: Thrush, Acute Bronchitis Additional Instructions: Follow up with Dr. Zamora in 1 week. Follow up with Dr. Cherry in 1 week. Follow up with Dr. Taylor for MRCP. Referrals: Betsy Cherry MD [Staff Provider] - [facility] [[facility] - Jomar Zamora MD [Staff Provider] - <Betsy Cherry - Last Filed: 05/14/17 14:49> Provider - Provider Date of Admission: 05/11/17 10:23 Attending physician: Betsy Cherry MD Primary care physician: Carmela Camacho [facility] Hospital Course - Lab Results Lab Results: Most Recent Lab Values WBC 15.2 10^3/ul (4.5-11.0) H 05/13/17 06:30 RBC 4.58 10^6/uL (3.5-6.1) 05/13/17 06:30 Hgb 13.6 g/dL (12.0-16.0) 05/13/17 06:30 Hct 41.4 % (36.0-48.0) 05/13/17 06:30 MCV 90.4 fl (80.0-105.0) 05/13/17 06:30 MCH 29.7 pg (25.0-35.0) 05/13/17 06:30 MCHC 32.9 g/dl (31.0-37.0) 05/13/17 06:30 RDW 12.9 % (11.5-14.5) 05/13/17 06:30 Plt Count 261 10^3/uL (120.0-450.0) 05/13/17 06:30 MPV 9.2 fl (7.0-11.0) 05/13/17 06:30 Gran % 71.2 % (50.0-68.0) H 05/12/17 08:45 Lymph % (Auto) 22.8 % (22.0-35.0) 05/12/17 08:45 Cooke % (Auto) 5.8 % (1.0-6.0) 05/12/17 08:45 Eos % (Auto) 0.1 % (1.5-5.0) L 05/12/17 08:45 Baso % (Auto) 0.1 % (0.0-3.0) 05/12/17 08:45 Gran # 11.50 (1.4-6.5) H 05/12/17 08:45 Lymph # (Auto) 3.7 (1.2-3.4) H 05/12/17 08:45 Cooke # (Auto) 0.9 (0.1-0.6) H 05/12/17 08:45 Eos # (Auto) 0.0 (0.0-0.7) 05/12/17 08:45 Baso # (Auto) 0.01 K/mm3 (0.0-2.0) 05/12/17 08:45 PT 12.3 SECONDS (9.4-12.5) 05/11/17 09:10 INR 1.07 (0.93-1.08) 05/11/17 09:10 D-Dimer, Quantitative < 200 ng/mL (0-243) 05/11/17 09:10 pCO2 42 mm/Hg (35-45) 05/11/17 09:45 pO2 178.0 mm/Hg (80-100) H 05/11/17 09:45 HCO3 28.5 mmol/L (21-28) H 05/11/17 09:45 ABG pH 7.44 (7.35-7.45) 05/11/17 09:45 ABG Total CO2 29.8 mmol.L (22-28) H 05/11/17 09:45 ABG O2 Saturation 99.4 % (95-98) H 05/11/17 09:45 ABG Base Excess 3.9 mmol/L (-2.0-3.0) H 05/11/17 09:45 ABG Potassium 3.0 mmol/L (3.6-5.2) L 05/11/17 09:45 Sodium 137.0 mmol/L (132-148) 05/11/17 09:45 Chloride 104.0 mmol/L (98-107) 05/11/17 09:45 Glucose 178 mg/dl (65-105) H 05/11/17 09:45 Lactate 1.4 mmol/L (0.7-2.1) 05/11/17 09:45 FiO2 60.0 % 05/11/17 09:45 Sodium 138 mmol/L (132-148) 05/13/17 06:30 Potassium 4.4 mmol/L (3.6-5.0) 02/23/18 06:30 Chloride 97 mmol/L (98-107) L 05/13/17 06:30 Carbon Dioxide 33 mmol/L (21-33) 05/13/17 06:30 Anion Gap 13 (10-20) 05/13/17 06:30 BUN 17 mg/dL (7-21) 05/13/17 06:30 Creatinine 0.8 mg/dl (0.7-1.2) 05/13/17 06:30 Est GFR ( Amer) > 60 05/13/17 06:30 Est GFR (Non-Af Amer) > 60 05/13/17 06:30 Random Glucose 129 mg/dL (70-110) H 05/13/17 06:30 Hemoglobin A1c 6.2 % (4.2-6.5) 05/12/17 08:30 Calcium 10.2 mg/dL (8.4-10.5) 05/13/17 06:30 Iron 125 ug/dL (45-180) 05/12/17 08:30 TIBC 279 ug/dL (265-497) 05/12/17 08:30 % Saturation 45 % (20-55) 05/12/17 08:30 Total Bilirubin 0.7 mg/dL (0.2-1.3) 05/12/17 08:45 AST 17 U/L (14-36) 05/12/17 08:45 ALT 23 U/L (7-56) 05/12/17 08:45 Alkaline Phosphatase 63 U/L (38-126) 05/12/17 08:45 Total Protein 6.8 g/dL (5.8-8.3) 05/12/17 08:45 Albumin 4.1 g/dL (3.0-4.8) 05/12/17 08:45 Globulin 2.7 gm/dL 05/12/17 08:45 Albumin/Globulin Ratio 1.6 (1.1-1.8) 05/12/17 08:45 Triglycerides 123 mg/dL (35-160) 05/12/17 08:45 Cholesterol 208 mg/dL (130-200) H 05/12/17 08:45 LDL Cholesterol Direct 119 mg/dL (0-129) 05/12/17 08:45 HDL Cholesterol 55 mg/dL (29-60) 05/12/17 08:45 Vitamin B12 610 pg/mL (239-931) 05/12/17 08:45 Folate 10.6 ng/mL 05/12/17 08:45 TSH 3rd Generation 5.01 mIU/mL (0.46-4.68) H 05/13/17 06:30 Arterial Blood Potassium 3.0 mmol/L (3.6-5.2) L 05/11/17 09:45 Influenza Typ A,B (EIA) Negative for flu a/b (NEGATIVE) 05/11/17 13:30 - Hospital Course Hospital Course: pt is seen and examined at bed side , agreed all above , chart , meds and labs noted , will f/u d/d with LIGHTING ENGINEER , will f/u
--- NOTE | 2017-05-13 18:11 | CP.PCM.PN ---
Subjective - Date & Time of Evaluation Date of Evaluation: 05/13/17 Time of Evaluation: 11:00 - Subjective Subjective: Seen and examined at the bedside earlier today, chart reviewed. Patient went for CT scan abdomen and pelvis with pancreatic protocol found to have dilated CBD at 10 mm, no stone or obstruction reported. Patient epigastric pain is better, she had a formed bowel movement yesterday no reports of bleeding, tolerating oral intake. No reports of nausea, vomiting, fever or chills. No SOB or chest pain. Objective - Vital Signs/Intake and Output Vital Signs (last 24 hours): Temp Pulse Resp BP Pulse Ox 98.2 F 68 18 93/61 L 97 05/13/17 06:00 05/13/17 06:00 05/13/17 06:00 05/13/17 06:00 05/13/17 06:00 Intake and Output: 05/13/17 05/13/17 06:59 18:59 Intake Total 660 Output Total 4 Balance 656 - Labs Labs: 05/13/17 06:30 05/13/17 06:30 PT 12.3 SECONDS (9.4-12.5) 05/11/17 09:10 INR 1.07 (0.93-1.08) 05/11/17 09:10 - Constitutional Appears: No Acute Distress - Eye Exam Eye Exam: Normal appearance. absent: Scleral icterus - ENT Exam ENT Exam: Mucous Membranes Moist - Neck Exam Neck Exam: Normal Inspection - Respiratory Exam Respiratory Exam: NORMAL BREATHING PATTERN. absent: Respiratory Distress - Cardiovascular Exam Cardiovascular Exam: +S1, +S2 - GI/Abdominal Exam GI & Abdominal Exam: Soft, Normal Bowel Sounds. absent: Guarding, Tenderness, Rebound - Extremities Exam Extremities Exam: absent: Calf Tenderness, Pedal Edema - Neurological Exam Neurological Exam: Alert, Awake, Oriented x3 - Skin Skin Exam: Dry, Warm Assessment and Plan - Assessment and Plan (Free Text) Assessment: ASSESSMENT: Dilated CBD, 10 mm, no obstruction, no GB stones, LFT normal , unknown, r/o CBD stone, malignancy Leukocystosis SOB/Cough/ Upper Respiratory Infection Improved Epigastric Pain, differential GERD,on steroids GERD Fibromyalgia PLAN: discussed with patient regarding MRCP without contrast further evaluate dilated CBD rule out any stones or malignancy continue Protonix daily diet as tolerated on Carafate on steroids DVT prophylaxsis on Nystatin FU TSH level Seen and discussed w/ Dr. Aly. Addendum: Spoke to nursing and case management patient is going to be discharged home, MRI machine is currently broken and unable to do MRI prior to discharge. Recommend that patient follow-up with her international bank manager Dr. aTylor to further evaluate dilated CBD, recommend outpatient MRCP.
--- NOTE | 2017-05-13 23:34 | PN ---
DATE: PULMONARY PROGRESS NOTE REFERRING PHYSICIAN: Betsy Cherry MD SUBJECTIVE: She is sitting up in a bed, is at bedside. Cough and epigastric discomfort is better. No nausea. No vomiting. No diarrhea. No leg pain or leg swelling. PHYSICAL EXAMINATION: GENERAL: In no acute distress. VITAL SIGNS: Temperature is 98, heart rate is 68, respiratory rate is 18, blood pressure 117/66, pulse ox 97% on room air. HEENT: Moist mucous membrane. No ulcer or thrush noted. NECK: Supple. No JVD. LUNGS: Have a fair airflow, with rhonchi. HEART: S1 and S2. ABDOMEN: Soft, nontender. No organomegaly. EXTREMITIES: There is no edema. NEUROLOGICAL: Awake and alert. Follows simple command. LABORATORY DATA: Reviewed and shows hemoglobin 13.6, hematocrit 40.4, WBC 15.2, platelet count is 261. Sodium 138, potassium 4.4, chloride 97, bicarbonate 33, BUN 17, creatinine 0.8, glucose 129, calcium is 10.2. TSH is 5.01. Cholesterol is 208. Influenza A and B is negative. Microbiology, blood culture is negative. MEDICATIONS: Reviewed and noted. No new changes in medication reported. IMPRESSION AND PLAN: Acute bronchitis, rule out asthma, gastroesophageal reflux disease. Patient will be discharged home on tapered dose of prednisone. Continue Advair 1 puff twice a day. Continue Ventolin rescue inhaler, Protonix 40 mg daily, Tylenol p.r.n. basis. Patient advised to get full pulmonary function tests. Follow with private medical doctor. I offered her to come to my office tomorrow to get a pulmonary function tests, which she refused. She said she has set up as outpatient at another facility. Recommended her to follow with the private medical doctor. Jomar Zamora MD
== END 2017-05-13 16:31 | disposition home or self-care (01) ==
LOC: EDSEX → ED 08:30 → INTOOBSV 10:23 → ERH 10:23 → 3RSO 13:21
PROVIDERS: ADMIT Internal Medicine; ATTEND Internal Medicine
DX: J20.9 Acute bronchitis, unspecified (principal); B37.0 Candidal stomatitis; K44.9 Diaphragmatic hernia without obstruction or gangrene; K83.8 Other specified diseases of biliary tract; M79.7 Fibromyalgia; K21.0 Gastro-esophageal reflux disease with esophagitis; F41.9 Anxiety disorder, unspecified; E78.00 Pure hypercholesterolemia, unspecified; R73.9 Hyperglycemia, unspecified; Z80.1 Family history of malignant neoplasm of trachea, bronchus and lung; Z86.010 Personal history of colon polyps
CPT/HCPCS: 36415; 71045; 74177; 80048; 80053; 80061; 82607; 82746; 82803; 83036; 83540; 83550; 84443; 85025; 85027; 85378; 85610; 87040; 87804; 93005; 94640; 94760; 96374; 99285; G0378; J2930; Q9967

== ENCOUNTER 2017-06-30 13:06 | Observation (INO) | payer BC ==
[2017-06-30 13:28] VITALS: BMI 28.1
--- NOTE | 2017-06-30 14:33 | ED PDOC ---
Arrival/HPI - General Chief Complaint: Chest Pain Time Seen by Provider: 06/30/17 13:37 Historian: Patient - History of Present Illness Narrative History of Present Illness (Text): 06/30/17 14:35 A 57 year old female, whose past medical history includes fibromyalgia, possible copd, prior smoker, presents to the emergency department complaining of rib pain since yesterday. Patient reports having pain since March and had recently worsened. Patient states visiting pain management and was told left side rib area was very inflammed. Mentions also having been given 2 shots of Cortizone. Also, patient notes since March, has felt weaker, and has had increased fatigue and chest tightness and shortness of breath with exertion. Denies calf pain. Denies pleuritic pain. Denies fevers or chills. Denies acute cough. PMD: Dr. Carvajal & Dr. Whipple 06/30/17 23:16 Past Medical History - Provider Review Nursing Documentation Reviewed: Yes - Infectious Disease Hx of Infectious Diseases: None - Reproductive Menopause: Yes (at 37 years) - Cardiac Hx Cardiac Disorders: No - Pulmonary Hx Respiratory Disorders: Yes (THRUSH-DUE TO STEROID USE) Hx Emphysema: Yes Other/Comment: LUNG NODULE - Neurological Hx Neurological Disorder: Yes Other/Comment: Fibromyalgia - HEENT Hx HEENT Disorder: No - Renal Hx Renal Disorder: No - Endocrine/Metabolic Hx Endocrine Disorders: No - Hematological/Oncological Hx Blood Disorders: No - Integumentary Hx Dermatological Disorder: No - Musculoskeletal/Rheumatological Hx Musculoskeletal Disorders: No Hx Falls: No - Gastrointestinal Hx Gastrointestinal Disorders: Yes (HIATAL HERNIA) Hx Gastroesophageal Reflux: Yes - Genitourinary/Gynecological Hx Genitourinary Disorders: Yes (TUBAL LIGATION) - Psychiatric Hx Anxiety: Yes Hx Substance Use: No - Surgical History Hx Tubal Ligation: Yes Family/Social History - Physician Review Nursing Documentation Reviewed: Yes Family/Social History: CAD/LA Smoking Status: Never Smoked Hx Alcohol Use: No Hx Substance Use: No Allergies/Home Meds Allergies/Adverse Reactions: Allergies epinephrine Allergy (Verified 06/30/17 13:27) ANAPHYLAXIS Pt states she gets to jumpy with this medication. Home Medications: Home Meds Medication Instructions Recorded Confirmed clonazePAM [clonAZEPAM] 1 mg PO QID 06/30/17 06/30/17 Review of Systems - Review of Systems Constitutional: absent: Fevers, Night Sweats Respiratory: SOB (when ambulating a few steps). absent: Cough Cardiovascular: Chest Pain (left-side rib pain), FRANCISCO. absent: Calf Pain Gastrointestinal: Appetite Changes. absent: Stool Changes, Nausea, Vomiting Musculoskeletal: Back Pain, Other (bilaterla arm pain) Skin: absent: Rash Neurological: absent: Headache, Dizziness, Focal Weakness Hemo/Lymphatic: absent: Easy Bleeding Psychiatric: absent: Depression Physical Exam - Physical Exam Narrative Physical Exam (Text): Head: Atraumatic. Normocephalic. Eyes: PERRL. EOMI. Conjunctivae are not pale. ENT: Mucous membranes are moist and intact. Oropharynx is clear and symmetric. Neck: Supple. Full ROM. No JVD. No lymphadenopathy. Cardiovascular: Regular rate. Regular rhythm. No murmurs, rubs, or gallops. Distal pulses are 2+ and symmetric. Pulmonary/Chest: No evidence of respiratory distress. Clear to auscultation bilaterally. No wheezing, rales or rhonchi. Palpable left anterior chest wall pain with no crepitus or edema. Abdominal: Soft and non-distended. There is no tenderness. No rebound, guarding, or rigidity. No organomegaly. Good bowel sounds. Back: No CVA tenderness. Extremities: No edema. No cyanosis. No clubbing. Full range of motion in all extremities. No calf tenderness. Skin: Skin is warm and dry. No petechiae. No purpura. Neurological: Alert, awake, and oriented to person, place, time, and situation. Normal speech. Motor and sensory exam intact. Psychiatric: Good eye contact. Normal interaction, affect, and behavior. \ Vital Signs Reviewed: Yes Vital Signs Temp Pulse Resp BP Pulse Ox 06/30/17 20:27 98.2 F 77 18 121/77 97 06/30/17 18:00 98.2 F 64 18 122/79 99 06/30/17 15:27 60 18 136/68 99 06/30/17 13:29 98.1 F 69 19 113/74 100 Temperature: Afebrile Appearance: Positive for: Uncomfortable Pain Distress: Mild Medical Decision Making ED Course and Treatment: 06/30/17 14:40 Impression: 57 year old female with left-side chest discomfort associated with intermittent chest tightness and dyspnea with exertion. Plan: -- EKG -- CXR -- Labs -- Influenza A B stat -- Urinalysis -- Reassess and disposition Prior Visits: Notes and results from previous visits were reviewed. Patient was last seen in the emergency department on 05/11/2017 for shortness of breath. Patient was admitted. Progress Notes: Patient reports left sided pain intermittent for several months which is palpable, although reports chest tightness that is distinct from this intermittently with exertion and dyspnea for several months. Currently no chest tightness at rest. Influenza positive although afebrile and not septic in ED. Tamiflu given. 06/30/2017 14:57 Chest X-ray IMPRESSION: No active pulmonary disease. Dictator: Jazmine Amezcua MD EKG and cardiac enzymes initially unremarkable. She has significant family history of mi, cad, stents in sibling and mother. Given strong family cardiac history and hx of chest tightness with exertion, patient requests admission to her PMD Dr. Whipple and she requests DR. JEFF ( PATIENT REQUEST) for cardiology consultation. Will admit to telemetry bed. - Lab Interpretations Lab Results: 06/30/17 14:59 06/30/17 14:59 Lab Results 06/30/17 15:02: Urine Color Light yellow, Urine Appearance Clear, Urine pH 6.5, Ur Specific [place] 1.015, Urine Protein Negative, Urine Glucose (UA) Negative, Urine Ketones Negative, Urine Blood Negative, Urine Nitrate Negative, Urine Bilirubin Negative, Urine Urobilinogen 0.2, Ur Leukocyte Esterase Negative 06/30/17 14:59: Influenza Typ A,B (EIA) Pos for influenza a H 06/30/17 14:59: Sodium 141, Potassium 4.3, Chloride 100, Carbon Dioxide 33, Anion Gap 13, BUN 15, Creatinine 0.7, Est GFR ( Amer) > 60, Est GFR (Non- Af Amer) > 60, Random Glucose 84, Calcium 9.6, Total Bilirubin 0.2, AST 27, ALT 34, Alkaline Phosphatase 59, Lactate Dehydrogenase 472, Total Creatine Kinase 63 , Troponin I < 0.01, Total Protein 6.6, Albumin 4.0, Globulin 2.6, Albumin/ Globulin Ratio 1.6, Amylase 56, Lipase 43 06/30/17 14:59: PT 11.0, INR 0.97, APTT 35.5 06/30/17 14:59: WBC 7.9 D, RBC 4.36, Hgb 13.1, Hct 39.1, MCV 89.7, MCH 30.0, MCHC 33.5, RDW 12.9, Plt Count 237, MPV 8.7, Gran % 53.6, Lymph % (Auto) 40.4 H , [place] % (Auto) 5.1, Eos % (Auto) 0.6 L, Baso % (Auto) 0.3, Gran # 4.21, Lymph # (Auto) 3.2, [place] # (Auto) 0.4, Eos # (Auto) 0.1, Baso # (Auto) 0.02 I have reviewed the lab results: Yes - RAD Interpretation Radiology Orders: 06/30/17 14:04 CHEST PORTABLE [RAD] Stat Chuck Wagon Driver: Radiologist - EKG Interpretation EKG Interpretation (Text): 06/30/17 23:19 EKG at 14:58 sinus bradycardia rate of 54 Interpreted by ED Physician: Yes Type: 12 lead EKG - Medication Orders Current Medication Orders: Clonazepam (Klonopin) 1 mg PO QID PRN; Protocol PRN Reason: Anxiety Discontinued Medications Aspirin (Aspirin Chewable) 81 mg PO STAT STA Stop: 06/30/17 15:55 Last Admin: 06/30/17 16:23 Dose: 81 mg Ibuprofen (Motrin Tab) 600 mg PO STAT STA Stop: 06/30/17 23:13 Oseltamivir Phosphate (Tamiflu Cap) 75 mg PO STAT STA PRN Reason: Protocol Stop: 06/30/17 15:55 Last Admin: 06/30/17 16:23 Dose: 75 mg - Scribe Statement The provider has reviewed the documentation as recorded by the Brandi Thompson Provider Scribe Attestation: All medical record entries made by the Brandi were at my direction and personally dictated by me. I have reviewed the chart and agree that the record accurately reflects my personal performance of the history, physical exam, medical decision making, and the department course for this patient. I have also personally directed, reviewed, and agree with the discharge instructions and disposition. Disposition/Present on Arrival - Present on Arrival Any Indicators Present on Arrival: No History of DVT/PE: No History of Uncontrolled Diabetes: No Urinary Catheter: No History of Decub. Ulcer: No History Surgical Site Infection Following: None - Disposition Have Diagnosis and Disposition been Completed?: Yes Diagnosis: Influenza, Chest pain, Dyspnea on exertion Disposition: HOSPITALIZED Disposition Time: 16:00 Patient Plan: Admission, Telemetry Patient Problems: Current Active Problems Problem Status Onset Chest pain Acute Dyspnea on exertion Acute Influenza Acute Condition: FAIR
--- NOTE | 2017-06-30 14:59 | RAD ---
HISTORY: Shortness of breath COMPARISON: 05/11/2017. FINDINGS: LUNGS: The lungs are well inflated and clear. PLEURA: No significant pleural effusion identified, no pneumothorax apparent. CARDIOVASCULAR: Normal. OSSEOUS STRUCTURES: No significant abnormalities. VISUALIZED UPPER ABDOMEN: Normal. OTHER FINDINGS: None. IMPRESSION: No active pulmonary disease.
[2017-06-30 15:05] LABS: BASO # 0.02 K/mm3 (0.0-2.0); BASO % 0.3 % (0.0-3.0); EOS # 0.1 (0.0-0.7); EOS % 0.6 % (1.5-5.0); GRAN # 4.21 (1.4-6.5); GRAN % 53.6 % (50.0-68.0); HEMOGLOBIN 13.1 g/dL (12.0-16.0); LYMPH # 3.2 (1.2-3.4); LYMPH % 40.4 % (22.0-35.0); MEAN CELL VOLUME 89.7 fl (80.0-105.0); MEAN CORPUSCULAR HGB CONC 33.5 g/dl (31.0-37.0); MEAN PLATELET VOLUME 8.7 fl (7.0-11.0); MONO # 0.4 (0.1-0.6); MONO % 5.1 % (1.0-6.0); RBC 4.36 10^6/uL (3.5-6.1); RED CELL DISTRIBUTION WIDTH 12.9 % (11.5-14.5); WHITE BLOOD COUNT 7.9 10^3/ul (4.5-11.0)
[2017-06-30 15:12] LABS: PH,URINE 6.5 (4.7-8.0); URINE BILIRUBIN NEGATIVE (NEGATIVE); URINE BLOOD NEGATIVE (NEGATIVE); URINE GLUCOSE (UA) NEGATIVE (NEGATIVE); URINE LEUKOCYTE ESTERASE NEGATIVE Leu/uL (NEGATIVE); URINE PROTEIN NEGATIVE mg/dL (<30 mg/dL); URINE UROBILINOGEN 0.2 E.U./dL (<1 E.U./dL)
[2017-06-30 15:14] LABS: URINE APPEARANCE CLEAR (CLEAR); URINE COLOR LIGHT YELLOW (YELLOW)
[2017-06-30 15:14] LABS: INR 0.97 (0.93-1.08); PARTIAL THROMBOPLASTIN TIME 35.5 Seconds (25.1-36.5)
[2017-06-30 15:15] LABS: ALB/GLOB RATIO 1.6 (1.1-1.8); ALT/SGPT 34 U/L (7-56); AMYLASE 56 U/L (35-125); AST/SGOT 27 U/L (14-36); BLOOD UREA NITROGEN 15 mg/dL (7-21); CALCIUM 9.6 mg/dL (8.4-10.5); GFR AFRICAN-AMERICAN > 60; GFR NON-AFRICAN AMERICAN > 60; LIPASE 43 U/L (23-300)
[2017-06-30 15:27] LABS: TROPONIN I < 0.01 ng/mL
[2017-06-30 20:29] VITALS: O2SAT 97
[2017-06-30 23:12] VITALS: RESP 20
--- NOTE | 2017-06-30 23:40 | CP.PCM.PN ---
Subjective - Date & Time of Evaluation Date of Evaluation: 06/30/17 Time of Evaluation: 23:39 - Subjective Subjective: draft muscular pain motrin requested Objective - Vital Signs/Intake and Output Vital Signs (last 24 hours): Temp Pulse Resp BP Pulse Ox 97.8 F 69 20 105/68 97 06/30/17 21:18 06/30/17 21:18 06/30/17 21:18 06/30/17 21:18 06/30/17 20:27 - Medications Medications: Current Medications Clonazepam (Klonopin) 1 mg PO QID PRN; Protocol PRN Reason: Anxiety - Labs Labs: PT 11.0 SECONDS (9.4-12.5) 06/30/17 14:59 INR 0.97 (0.93-1.08) 06/30/17 14:59 APTT 35.5 Seconds (25.1-36.5) 06/30/17 14:59
[2017-07-01 07:02] VITALS: TEMP 98.5
--- NOTE | 2017-07-01 07:31 | CARD ---
APPROVED REPORT EKG Measurement Heart [id number] <Conclusion> Sinus bradycardia Otherwise normal ECG
--- NOTE | 2017-07-01 11:06 | HP ---
CHIEF COMPLAINT AND HISTORY OF PRESENT ILLNESS This is a 57-year-old female, who is coming into the hospital complaining of left-sided chest pain. She says that she has been having this left-sided chest pain for the past few weeks. She has seen for lung specialist, who has given her different ideas of what the cause may be. She was also seen by Dr. Todd. She had a stress test done in August of last year. She says that she would like to get another opinion from a rn [employer]. The patient has no complaints of any chest pain. No shortness of breath. No headaches or dizziness. The patient says that she does not have shortness of breath or chest pain when she walks. She does have pain when she pushes against the left side of the chest. She was given Motrin last night and had improvement of her symptoms. She also was given steroids by Dr. Noonan, her pain management doctor and she said her symptoms did improve. She has no fevers or chills. No nausea. No vomiting. No dysuria. No frequency. No headaches. REVIEW OF SYMPTOMS: All other review of symptoms are within normal limits except as mentioned. She says the pain sometimes is 10/10, does not radiate. She has no shortness of breath associated with it, but she does get short of breath with exertion. PAST MEDICAL HISTORY: Fibromyalgia, anxiety. PAST SURGICAL HISTORY: Tubal ligation. ALLERGIES: THE PATIENT'S ALLERGIES TO EPINEPHRINE. SOCIAL HISTORY: She does not smoke, use drugs or drink. FAMILY HISTORY: Mother had lung cancer. She has a sister that had heart disease. PHYSICAL EXAMINATION: VITAL SIGNS: She has a temperature of 98.5, pulse of 70, blood pressure is 91/58, respirations 20, O2 saturation 97%. Height is 5 feet 7. Weight is 180 pounds. GENERAL: The patient lying in bed, uncomfortable, and in no acute distress. HEENT: Atraumatic and normocephalic. Anicteric sclerae. Moist mucosa. [place] conjunctivae. No oral lesions. NECK: No JVD, anterior and posterior adenopathy, thyromegaly, or bruits. CARDIOVASCULAR: S1 and S2 regular. No murmur, rubs, or gallop. LUNGS: Clear to auscultation bilaterally. No wheezes, rales, or rhonchi. ABDOMEN: Bowel sounds are positive. Soft, nontender and nondistended. No hepatosplenomegaly. No rebound and no guarding EXTREMITIES: No cyanosis, clubbing, or edema. NEUROLOGIC: No facial asymmetry. Tongue is midline. No uvula deviation. Power is 5/5 upper extremity and lower extremity. Sensation intact in upper extremity and lower extremity. PSYCHIATRIC: She is awake, alert and oriented x3. No anxiety or depression. She has normal affect. GENITOURINARY: No CVA tenderness. VASCULAR: 2+ pulses in the carotid pulses and pedal pulses. SKIN: No erythema or nodules SPINE: Shows normal curvature. LABORATORY DATA: White count of 7.9, hemoglobin 13.1. INR is 0.97. Chemistry shows troponin x2 have been negative. She has influenza that is positive. She has UA that is negative. Chest x-ray done shows no active disease. EKG shows sinus bradycardia with a heart rate of 54, QTc is 403. ASSESSMENT: 1. Viral infection secondary to flu. 2. Anxiety. 3. Gastroesophageal reflux disease. 4. Possible chronic obstructive pulmonary disease. PLAN: The patient is currently on clonazepam for her anxiety. She is going to continue with aspirin. She is on Tamiflu. The patient is going to be seen by Dr. Moses as a request. She is going to be placed on Tamiflu. We will await further input from Dr. Moses. This pain seems more musculoskeletal. Condition stable. Activities increase as tolerated. Discharged home and possible outpatient stress versus cath by Dr. Moses. Moisés Whipple MD
[2017-07-01 12:29] VITALS: BP 100/60; PULSE 68
--- NOTE | 2017-07-01 20:46 | CON ---
DATE: 07/01/2017 CARDIOLOGY CONSULTATION HISTORY OF PRESENT ILLNESS: The patient is a 57-year-old woman who is a former smoker who presents with pleuritic like chest pain. No previous cardiac history. She is found to have her glucose is borderline elevated as well as cholesterol that is elevated. No previous cardiac history in the past. She was found to have positive H. flu. SOCIAL HISTORY: She is a recent smoker. REVIEW OF SYSTEMS: A 14-point review of systems was reviewed in detail. No cardiac symptomatology is noted. PHYSICAL EXAMINATION VITAL SIGNS: Blood pressure is 110/68, heart rate is in the 70s. NECK: Negative JVD. LUNGS: Without rales. HEART: Reveals S1, S2. EXTREMITIES: Without edema. LABORATORY DATA: Hemoglobin is 13.1. Chemistries, troponins are negative x2. EKG is unremarkable. IMPRESSION: 1. Pleuritic like chest pain. 2. Haemophilus influenzae. 3. Borderline diabetes mellitus. 4. Elevated cholesterol. PLAN: Given these findings, there is no evidence for acute coronary syndrome. From a cardiac perspective, the patient can be discharged. I will discontinue telemetry today. Given her cardiac risk factors, we will arrange for an outpatient stress test once she is over her flu. Ricki Moses MD
== END 2017-07-01 13:08 | disposition home or self-care (01) ==
LOC: ED 13:06 → INTOOBSV 17:32 → ERH 17:32 → 2RNO 21:03
PROVIDERS: ADMIT Internal Medicine Nephrology; ATTEND Internal Medicine Nephrology
DX: J11.1 Influenza due to unidentified influenza virus with other respiratory manifestations (principal); R07.81 Pleurodynia; K21.9 Gastro-esophageal reflux disease without esophagitis; M79.7 Fibromyalgia; F41.9 Anxiety disorder, unspecified; R73.03 Prediabetes; E78.00 Pure hypercholesterolemia, unspecified; Z80.1 Family history of malignant neoplasm of trachea, bronchus and lung; Z87.891 Personal history of nicotine dependence
CPT/HCPCS: 36415; 71045; 80053; 81003; 82150; 82550; 83615; 83690; 84484; 85025; 85610; 85730; 87804; 93005; 99285; G0378

== ENCOUNTER 2017-08-26 06:56 | Emergency (ER) | payer BC ==
[2017-08-26 07:10] VITALS: BMI 28.5
[2017-08-26] MEDS ORDERED: Sodium Chloride 0.9% 1,000 ML IV STA (07:27)
--- NOTE | 2017-08-26 07:32 | ED PDOC ---
Arrival/HPI - General Chief Complaint: Shortness Of Breath Time Seen by Provider: 08/26/17 07:15 Historian: Patient - History of Present Illness Narrative History of Present Illness (Text): 08/26/17 07:28 pt p/w + < 1d onset of feeling very warm/hot, sweaty, + at times chills, + body aches/malaise, + fatigue; pt took her temp and noted Temp ~ 103; pt states over the last 2-3 days her costrocondritis pain return and was severe at 9/10; pt states pain is along her chest wall region; pt states no coughing/runny nose, no sore throat, no abd pain, no n/v, no numbness/tingling, no urinary/bowel changes, no rashes, no gross bleeding, no fall/trauma/travel, ? sick contact ( pt had been in contact with a friend of hers who is ill but with stage 4 cancer? ); pt states + dizziness/lightheadedness, no LOC, + mild headache; no other complaints; pt is here for further eval. PCP: Dr Whipple cards: Dr Moses recent stress tests ~ negative Time/Duration: Prior to Arrival Symptom Onset: Sudden Symptom Course: Unchanged Quality: Stabbing Severity Level: 4, Mild Activities at Onset: Rest Context: Home Past Medical History - Provider Review Nursing Documentation Reviewed: Yes - Travel History Have you recently traveled outside [place] w/in the past 3 mons?: No - Past History Past History: No Previous - Infectious Disease Hx of Infectious Diseases: None - Reproductive Menopause: Yes Currently : Unknown - Cardiac Hx Cardiac Disorders: No - Pulmonary Hx Respiratory Disorders: Yes (THRUSH-DUE TO STEROID USE) Hx Emphysema: Yes Other/Comment: LUNG NODULE, costochondritis - Neurological Hx Neurological Disorder: Yes Other/Comment: Fibromyalgia - HEENT Hx HEENT Disorder: No - Renal Hx Renal Disorder: No - Endocrine/Metabolic Hx Endocrine Disorders: No - Hematological/Oncological Hx Blood Disorders: No - Integumentary Hx Dermatological Disorder: No - Musculoskeletal/Rheumatological Hx Musculoskeletal Disorders: No Hx Falls: No - Gastrointestinal Hx Gastrointestinal Disorders: Yes (HIATAL HERNIA) Hx Gastroesophageal Reflux: Yes - Genitourinary/Gynecological Hx Genitourinary Disorders: Yes (TUBAL LIGATION) - Psychiatric Hx Anxiety: Yes Hx Substance Use: No - Surgical History Hx Tubal Ligation: Yes Family/Social History - Physician Review Nursing Documentation Reviewed: Yes Family/Social History: No Known Family HX Smoking Status: Former Smoker (quit smoking 03/2017) Hx Alcohol Use: No Hx Substance Use: No Allergies/Home Meds Allergies/Adverse Reactions: Allergies epinephrine Allergy (Verified 08/26/17 07:10) ANAPHYLAXIS Pt states she gets to jumpy with this medication. Home Medications: Home Meds Medication Instructions Recorded Confirmed clonazePAM [clonAZEPAM] 1 mg PO TID 06/30/17 08/26/17 Buprenorphine HCl/Naloxone HCl 1 each SL BID 07/25/17 08/26/17 [Suboxone 8 mg-2 mg Sl Film] Review of Systems - Review of Systems Constitutional: Fatigue, Fevers Eyes: Normal ENT: absent: Hearing Changes, Sore Throat, Rhinorrhea Respiratory: Normal. absent: SOB, Cough, Sputum, Wheezing Cardiovascular: Chest Pain. absent: Palpitations Gastrointestinal: absent: Abdominal Pain, Diarrhea, Nausea, Vomiting Genitourinary Female: absent: Dysuria, Frequency Musculoskeletal: Myalgias Skin: Normal Neurological: Headache, Dizziness Endocrine: Diaphoresis Hemo/Lymphatic: Normal Psychiatric: Normal Physical Exam - Physical Exam Narrative Physical Exam (Text): 08/26/17 07:35 General: alert/awake, GCS = 15, oriented x 3, resting in bed, uncomfortable, cooperative, interactive; NAD Head: NC/AT EYE: PERRLA, EOMI, sclera anicteric, no nystagmus, no photophobia; visual field intact b/l Facial: WNL ENT: TM clear b/l, no effusions/bulging/tenderness; moist oral mucosa Oral: uvula/tongue are midline, no exudate/lesions, no drooling/stridor, no dysphonia; intact dentitions NECK: intact ROM, no midline tenderness, no nuchal rigidity, no meningeal signs ; no step off Chest: CTA b/l, no w/r/r; no tachypenia, no accessory muscle use noted Chest Wall: no focal tenderness, no gross deformities, no crepitus, no lesions/ rashes noted Cardiac: +S1, +S2, no m/r/r, + tachycardia Abdominal: +BS, soft/nd/nt, well nourished patient; no masses/rebound/guarding/ rigidity; no chinchilla's sign, no mcburney's point tenderness Extremities: intact ROM, strength 5/5 grossly intact in all limbs, neurovasc intact b/l; + ambulatory; reflex +2/2; no pitting edema/swelling noted b/l lower ext BACK: no step off, no midline tenderness, NO crepitus, no gross deformities noted; Intact ROM SKIN: cap refill < 1 sec, no ulcerations, no petechiae, no rashes/lesions noted ; no gross pallor noted NEURO: CNII-XII WNL, no facial asymmetries, no slurr speech, oriented x 3 NIH stroke scale ~ 0 Psych: normal insight, normal affect; follows command with ease Vital Signs Reviewed: Yes Vital Signs Temp Pulse Resp BP Pulse Ox 08/26/17 10:53 99.3 F 83 18 125/74 98 08/26/17 09:48 84 18 98 08/26/17 07:18 20 95 08/26/17 07:11 99.8 F H 122 H 20 96 08/26/17 07:10 99.8 F H 122 H 20 127/79 95 Temperature: Febrile Blood Pressure: Normal Pulse: Tachycardic Respiratory Rate: Normal Appearance: Positive for: Well-Appearing, Non-Toxic, Uncomfortable. No: Ill- Appearing, Unkept Pain Distress: None Mental Status: Positive for: Alert and Oriented X 3 - Systems Exam Head: Present: Atraumatic, Normocephalic Medical Decision Making ED Course and Treatment: 08/26/17 07:29 Impression: fever i have consider all the differential diagnosis regarding pt's chief medical complaints/clinical findings, including but are not limited to: fever A/P: fever - labs - iv - xray - supportive care - observe/reevaluation 1000 pt is doing well, pt is comfortable pt is awaiting lab/xray diagnostics 08/26/17 12:08 pt is doing well pt is comfortable vital signs remained stable pt is made aware of her medical results pt is encouraged fluids pt is encouraged outpt f/u pt will be discharged home Re-evaluation Time: 11:55 Reassessment Condition: Improving,but remains with symptoms - Lab Interpretations Lab Results: 08/26/17 07:53 08/26/17 07:53 Lab Results 08/26/17 07:53: Sodium 140, Chloride 99, Potassium 4.9, Carbon Dioxide 30, Anion Gap 15, BUN 14, Creatinine 0.8, Est GFR ( Amer) > 60, Est GFR (Non- Af Amer) > 60, Random Glucose 144 H, Calcium 9.0, Phosphorus 3.3, Magnesium 1.8 , Total Bilirubin 0.5, AST 28, ALT 41, Alkaline Phosphatase 91, Total Protein 6.4, Albumin 3.6, Globulin 2.8, Albumin/Globulin Ratio 1.3 08/26/17 07:53: pO2 30, VBG pH 7.35, VBG pCO2 59.0, VBG HCO3 32.6 H, VBG Total CO2 34.4 H, VBG O2 Sat (Calc) 66.6 H, VBG Base Excess 5.2 H, VBG Potassium 4.4, Sodium 136.0, Chloride 102.0, Glucose 149 H, Lactate 2.0, FiO2 21.0, Venous Blood Potassium 4.4 08/26/17 07:53: Urine Color Yellow, Urine Appearance Clear, Urine pH 6.0, Ur Specific [place] 1.010, Urine Protein Negative, Urine Glucose (UA) Negative, Urine Ketones Negative, Urine Blood Negative, Urine Nitrate Negative, Urine Bilirubin Negative, Urine Urobilinogen 0.2, Ur Leukocyte Esterase Negative 08/26/17 07:53: WBC 8.6, RBC 4.02, Hgb 12.0, Hct 35.3 L, MCV 87.8, MCH 29.9, MCHC 34.0, RDW 12.7, Plt Count 204, MPV 8.8, Gran % 73.2 H, Lymph % (Auto) 19.9 L, [place] % (Auto) 6.0, Eos % (Auto) 0.5 L, Baso % (Auto) 0.4, Gran # 6.28, Lymph # (Auto) 1.7, [place] # (Auto) 0.5, Eos # (Auto) 0.0, Baso # (Auto) 0.03, ESR 39 H I have reviewed the lab results: Yes Interpretation: All labs normal - RAD Interpretation Narrative RAD Interpretations (Text): Report Date : 08/26/2017 10:31:38 Procedure: Chest xray Dictator : Severino Pearce MD IMPRESSION: No active disease. Radiology Orders: 08/26/17 07:26 CHEST TWO VIEWS (PA/LAT) [RAD] Stat Top Cutter: Radiologist - EKG Interpretation EKG Interpretation (Text): 08/26/17 07:50 Sinus rhythm at 90 bpm, with PACs, normal axis, diffuse low voltage inf leads, no st-t changes, BORDERLINE EKG; no gross changes compare with old ekg 06/2017 Interpreted by ED Physician: Yes Type: 12 lead EKG Comparison: Similar to previous EKG - Medication Orders Current Medication Orders: Acetaminophen (Tylenol 325mg Tab) 975 mg PO ONCE PRN PRN Reason: Fever >100.4 F Discontinued Medications Sodium Chloride (Sodium Chloride 0.9%) 1,000 mls @ 999 mls/hr IV .Q1H1M STA Stop: 08/26/17 08:27 Last Admin: 08/26/17 08:02 Dose: 999 mls/hr eMAR Start Stop Document 08/26/17 08:02 [email or web address] (Rec: 08/26/17 08:02 [email or web address] [id number]) Intravenous Solution Start Date 08/26/17 Start Time 08:02 End Date 08/26/17 Disposition/Present on Arrival - Present on Arrival Any Indicators Present on Arrival: No History of DVT/PE: No History of Uncontrolled Diabetes: No Urinary Catheter: No History of Decub. Ulcer: No History Surgical Site Infection Following: None - Disposition Have Diagnosis and Disposition been Completed?: Yes Diagnosis: Fever, Whole body pain, Costochondritis Disposition: HOME/ ROUTINE Disposition Time: 12:01 Patient Plan: Discharge Patient Problems: Current Active Problems Problem Status Onset Costochondritis Acute Fever Acute Whole body pain Acute Condition: STABLE Discharge Instructions (ExitCare): Costochondritis, Fever, Adult (DC) Print Language: SYRIAN Additional Instructions: Make sure to see your doctor in 1-2 days DRINK PLENTY OF FLUIDS take your medications as prescribed RETURN TO ED IF worse pain, cant breath, persistent vomiting, high fever >101- 102 for hours, altered behavior, slurr speech, facial changes, focal weakness ( arm/leg or both), unable to urinate, heavy/persistent bleeding, passing out, chest pain, or other medical emergencies Referrals: [facility] [Outside] - Follow up with primary [facility] [Outside] - Follow up with primary [facility] [place] [Outside] - Follow up with primary Forms: [employer] ([employer])
[2017-08-26 07:58] LABS: BASO # 0.03 K/mm3 (0.0-2.0); BASO % 0.4 % (0.0-3.0); EOS % 0.5 % (1.5-5.0); GRAN # 6.28 (1.4-6.5); GRAN % 73.2 % (50.0-68.0); LYMPH # 1.7 (1.2-3.4); LYMPH % 19.9 % (22.0-35.0); MEAN CELL VOLUME 87.8 fl (80.0-105.0); MEAN CORPUSCULAR HEMOGLOBIN 29.9 pg (25.0-35.0); MEAN PLATELET VOLUME 8.8 fl (7.0-11.0); MONO # 0.5 (0.1-0.6); RBC 4.02 10^6/uL (3.5-6.1); RED CELL DISTRIBUTION WIDTH 12.7 % (11.5-14.5); VENOUS BLOOD GAS BASE EXCESS 5.2 mmol/L (0.0-2.0); VENOUS BLOOD GAS PO2 30 mm/Hg (30-55); VENOUS BLOOD PH 7.35 (7.32-7.43); WHITE BLOOD COUNT 8.6 10^3/ul (4.5-11.0)
[2017-08-26 08:08] LABS: ALB/GLOB RATIO 1.3 (1.1-1.8); ALBUMIN 3.6 g/dL (3.0-4.8); ALT/SGPT 41 U/L (7-56); AST/SGOT 28 U/L (14-36); BLOOD UREA NITROGEN 14 mg/dL (7-21); GFR AFRICAN-AMERICAN > 60; GFR NON-AFRICAN AMERICAN > 60
[2017-08-26 08:12] LABS: URINE APPEARANCE CLEAR (CLEAR); URINE BILIRUBIN NEGATIVE (NEGATIVE); URINE BLOOD NEGATIVE (NEGATIVE); URINE COLOR YELLOW (YELLOW); URINE GLUCOSE (UA) NEGATIVE (NEGATIVE); URINE LEUKOCYTE ESTERASE NEGATIVE Leu/uL (NEGATIVE); URINE PROTEIN NEGATIVE mg/dL (<30 mg/dL); URINE UROBILINOGEN 0.2 E.U./dL (<1 E.U./dL)
[2017-08-26 09:49] VITALS: RESP 18; O2SAT 98
--- NOTE | 2017-08-26 10:33 | RAD ---
HISTORY: Sepsis Patient, fever COMPARISON: 06/30/2017 TECHNIQUE: Chest PA and lateral FINDINGS: LUNGS: No active pulmonary disease. PLEURA: No significant pleural effusion identified. No pneumothorax apparent. CARDIOVASCULAR: Normal. OSSEOUS STRUCTURES: No significant abnormalities. VISUALIZED UPPER ABDOMEN: Normal. OTHER FINDINGS: None. IMPRESSION: No active disease.
[2017-08-26 10:54] VITALS: BP 125/74
[2017-08-26 12:13] VITALS: PULSE 85; TEMP 98.3
--- NOTE | 2017-08-26 14:20 | CARD ---
APPROVED REPORT EKG Measurement Heart [id number] <Conclusion> Sinus rhythm with premature atrial complexes Low voltage limb leads
== END 2017-08-26 12:13 | disposition home or self-care (01) ==
LOC: ED 06:56
DX: M94.0 Chondrocostal junction syndrome [Tietze] (principal); R52 Pain, unspecified; R50.9 Fever, unspecified
CPT/HCPCS: 71046; 80053; 81003; 82803; 83735; 84100; 85025; 85651; 86140; 93005; 99283; J7030